=== PATIENT | female | born 1970 | race Caucasian/White ===

== ENCOUNTER 2019-04-18 22:24 | Emergency (ER) | payer SELFPAY ==
[~2019-04-18] VITALS: Ht 172.7 cm; Wt 107.3 kg
[2019-04-18 22:30] VITALS: Ht 172.7 cm; Wt 107.3 kg
[2019-04-18] MEDS ORDERED: VOLTAREN75 MG PO (23:01)
[2019-04-18 23:58] VITALS: BP 140/97
== END 2019-04-19 00:02 | disposition home or self-care (01) ==
LOC: D.ER 22:24
DX: S99.921A Unspecified injury of right foot, initial encounter (principal); V43.62XA Car passenger injured in collision with other type car in traffic accident, initial encounter; Y93.89 Activity, other specified; Y92.410 Unspecified street and highway as the place of occurrence of the external cause; S29.9XXA Unspecified injury of thorax, initial encounter